=== PATIENT | female | born 1950 | race Two or more races ===

== ENCOUNTER → 2017-01-22 | Outpatient (CLI) | payer OTHER | END | disposition home or self-care (01) | LOC: LAB 15:03 | PROVIDERS: ATTEND Nurse Practitioner | DX: Z02.1 Encounter for pre-employment examination (principal) | CPT/HCPCS: 86735; 86762; 86765; 86787 ==

== ENCOUNTER → 2018-09-25 | Outpatient (CLI) | payer BC ==
[2018-09-25 10:10] LABS: Urine WBC None Seen /hpf (0 - 5)
[2018-09-25 10:37] LABS: Basophils # (auto) 0 uL; Eosinophils # (auto) 0.1 uL; Eosinophils % (auto) 2.1 % (0.0-7.0); Hematocrit 39.1 % (36.0-46.0); Hemoglobin 13.4 g/dL (12.2-16.2); Lymphocytes % (auto) 29.9 % (10.0-50.0); Mean Corpuscular Hemoglobin 30.2 pg (28.0-32.0); Mean Corpuscular Hgb Conc. 34.1 g/dL (32.0-36.0); Mean Corpuscular Volume 88.5 fL (80.0-100.0); Monocytes # (auto) 0.2 uL; Neutrophils # (auto) 2.1 uL; Nucleated Red Blood Cells % 0.2 %; Platelet Count (auto) 218 10^3/uL (140-450); Red Blood Cells 4.42 10^6/uL (4.0-5.20); Red Cell Distribution Width 13.1 % (11.8-14.3); White Blood Cell 3.5 10^3/uL (4.4-10.8)
[2018-09-25 10:54] LABS: Urine Bacteria NONE SEEN /hpf (None Seen); Urine Blood Negative /uL (Negative); Urine Specific Gravity 1.003 (1.001-1.035)
[2018-09-25 11:01] LABS: Potassium 4.3 mmol/L (3.5-5.1)
[2018-09-25 11:12] LABS: Albumin 4.1 g/dL (3.4-5.0); BUN/Creatinine Ratio 8.3; Bilirubin, Total 0.5 mg/dL (0.2-1.0); Calcium 9.2 mg/dL (8.5-10.1); Magnesium 2.7 mg/dL (1.6-2.6); Total Protein 8.3 g/dL (6.4-8.2); Uric Acid 2.8 mg/dL (2.6-6.0)
[2018-09-25 11:54] LABS: T3 Total 1.22 ng/mL (0.60-1.81)
[2018-09-25 11:55] LABS: Folate (Folic Acid) 16.78 ng/mL (5.38-24); Free T3 3.21 pg/mL (2.3-4.2)
[2018-09-25 11:57] LABS: Free T4 (Free Thyroxine) 1.15 ng/dL (0.89-1.76)
== END | disposition home or self-care (01) ==
LOC: LAB 09:38
DX: Z76.89 Persons encountering health services in other specified circumstances (principal)
CPT/HCPCS: 36415; 80053; 80061; 81001; 82306; 82607; 82746; 83036; 83540; 83735; 84439; 84443; 84480; 84481; 84550; 85025; 87086

== ENCOUNTER → 2020-01-17 | Outpatient (CLI) | payer BC ==
[2020-01-17 11:44] LABS: Basophils # (auto) 0 10 ^3/uL (0-0.2); Basophils % (auto) 0.7 % (0.0-2.0); Eosinophils # (auto) 0.1 10 ^3/uL (0-0.8); Hematocrit 38.4 % (36.0-46.0); Hemoglobin 13.1 g/dL (12.2-16.2); Lymphocytes # (auto) 1.5 10 ^3/uL (0.4-5.4); Lymphocytes % (auto) 32.8 % (10.0-50.0); Mean Corpuscular Hemoglobin 29.9 pg (28.0-32.0); Mean Corpuscular Volume 88.1 fL (80.0-100.0); Monocytes # (auto) 0.3 10 ^3/uL (0-1.3); Neutrophils # (auto) 2.7 10 ^3/uL (1.6-8.6); Neutrophils % (auto) 57.5 % (37.0-80.0); Nucleated Red Blood Cells % 0.1 %; Platelet Count (auto) 241 10^3/uL (140-450); Red Blood Cells 4.36 10^6/uL (4.0-5.20); Red Cell Distribution Width 13.1 % (11.8-14.3); Urine Bacteria NONE SEEN /hpf (None Seen); Urine Blood Negative /uL (Negative); Urine Mucus FEW (None Seen); Urine Specific Gravity 1.004 (1.001-1.035); Urine WBC <1 /hpf (0 - 5); White Blood Cell 4.6 10^3/uL (4.4-10.8)
[2020-01-17 13:03] LABS: Potassium 3.7 mmol/L (3.5-5.1)
[2020-01-17 13:13] LABS: Albumin 3.9 g/dL (3.4-5.0); BUN/Creatinine Ratio 9.6; Bilirubin, Total 0.5 mg/dL (0.2-1.0); Uric Acid 3.6 mg/dL (2.6-6.0)
[2020-01-17 15:12] LABS: Free T4 (Free Thyroxine) 1.14 ng/dL (0.89-1.76)
[2020-01-17 15:13] LABS: Free T3 2.77 pg/mL (2.3-4.2); T3 Total 0.99 ng/mL (0.60-1.81)
== END | disposition home or self-care (01) ==
LOC: LAB 11:15
DX: Z13.220 Encounter for screening for lipoid disorders (principal); D51.9 Vitamin B12 deficiency anemia, unspecified; R79.9 Abnormal finding of blood chemistry, unspecified; R82.90 Unspecified abnormal findings in urine
CPT/HCPCS: 36415; 80053; 80061; 81001; 82306; 82607; 83036; 84439; 84443; 84480; 84481; 84550; 85025; 86225; 86235; 87086

== ENCOUNTER 2022-09-10 16:33 | Inpatient (IN) | payer BC ==
[~2022-09-10] VITALS: Ht 157.5 cm; Wt 57.4 kg
[2022-09-10 17:30] LABS: Basophils # (auto) 0.1 10 ^3/uL (0-0.2); Eosinophils # (auto) 0.1 10 ^3/uL (0-0.8); Eosinophils % (auto) 1.4 % (0.0-7.0); White Blood Cell 8.8 10^3/uL (4.4-10.8)
[2022-09-10 17:33] LABS: Basophils % (auto) 0.9 % (0.0-2.0); Hematocrit 20.9 % (36.0-46.0); Lymphocytes # (auto) 1.5 10 ^3/uL (0.4-5.4); Lymphocytes % (auto) 17.3 % (10.0-50.0); Mean Corpuscular Hemoglobin 21.7 pg (28.0-32.0); Mean Corpuscular Hgb Conc. 31.8 g/dL (32.0-36.0); Mean Corpuscular Volume 68.3 fL (80.0-100.0); Monocytes # (auto) 1.1 10 ^3/uL (0-1.3); Monocytes % (auto) 12.3 % (0.0-12.0); Neutrophils % (auto) 68.1 % (37.0-80.0); Red Blood Cells 3.06 10^6/uL (4.0-5.20); Red Cell Distribution Width 17.9 % (11.8-14.3)
[2022-09-10 17:34] LABS: Urine Bacteria NONE SEEN /hpf (None Seen); Urine Blood Negative /uL (Negative); Urine Specific Gravity 1.012 (1.001-1.035); Urine WBC 1 /hpf (0 - 5)
[2022-09-10 17:41] LABS: Hemoglobin 6.6 g/dL (12.2-16.2)
[2022-09-10 17:43] LABS: BUN/Creatinine Ratio 11.8 (10.0-20.0); Calcium 8.9 mg/dL (8.5-10.1); Potassium 4.1 mmol/L (3.5-5.1)
[2022-09-10 17:46] LABS: Bilirubin, Total 0.3 mg/dL (0.2-1.0); Total Protein 9.1 g/dL (6.4-8.2)
[2022-09-10] MEDS ORDERED: PANTOPRAZOLE 40 MG/10 ML VIAL INJ IV ONE (21:30)
[2022-09-10] MEDS ORDERED: FERROUS SULFATE 325mg EC TAB PO ONE (21:45)
[2022-09-10 21:50] LABS: % Iron Saturation 8.7 % (15-50)
[2022-09-10] MEDS ORDERED: AZIT250T9 PO (21:51)
[2022-09-10] MEDS ORDERED: AZEL0.1S NAS (21:51)
[2022-09-10] MEDS ORDERED: METH4PAK3 PO (21:51)
[2022-09-10 21:53] VITALS: BP 120/65
[2022-09-10] MEDS ORDERED: NITROGLYCERIN 0.4 MG SL TAB SL PRN (22:00)
[2022-09-10] MEDS ORDERED: MORPHINE SULFATE INJ 2 MG/ml SYRG IV PRN (22:00)
[2022-09-10 22:06] LABS: Folate (Folic Acid) 15.62 ng/mL (5.38-24)
[2022-09-10 22:11] VITALS: BP 126/63
[2022-09-11] VITALS (8 sets, daily range): BP systolic 113–134; BP diastolic 56–74
[2022-09-11 05:48] LABS: Basophils # (auto) 0 10 ^3/uL (0-0.2); Eosinophils # (auto) 0.2 10 ^3/uL (0-0.8); Eosinophils % (auto) 2.7 % (0.0-7.0); Hematocrit 28.2 % (36.0-46.0); Hemoglobin 9.1 g/dL (12.2-16.2); Mean Corpuscular Hemoglobin 24.2 pg (28.0-32.0); Mean Corpuscular Hgb Conc. 32.3 g/dL (32.0-36.0); Mean Corpuscular Volume 74.9 fL (80.0-100.0); Monocytes # (auto) 0.8 10 ^3/uL (0-1.3)
[2022-09-11 05:50] LABS: Basophils % (auto) 0.6 % (0.0-2.0); Lymphocytes % (auto) 14.8 % (10.0-50.0); Monocytes % (auto) 11.5 % (0.0-12.0); Neutrophils # (auto) 4.8 10 ^3/uL (1.6-8.6); Neutrophils % (auto) 70.4 % (37.0-80.0); Red Blood Cells 3.76 10^6/uL (4.0-5.20); White Blood Cell 6.8 10^3/uL (4.4-10.8)
[2022-09-11 06:04] LABS: Red Cell Distribution Width 20.6 % (11.8-14.3)
[2022-09-11 06:08] LABS: Potassium 3.7 mmol/L (3.5-5.1)
[2022-09-11 06:17] LABS: BUN/Creatinine Ratio 7.9 (10.0-20.0); Bilirubin, Total 1.1 mg/dL (0.2-1.0); Calcium 9.1 mg/dL (8.5-10.1); Total Protein 8.3 g/dL (6.4-8.2)
[2022-09-11] MEDS: PANTOPRAZOLE 40 MG/10 ML VIAL INJ IV SCH (10:02)
[2022-09-11] MEDS ORDERED: SODIUM FERR GLUC 62.5MG/5ML 125 MG in SODIUM CHL 0.9% 100 ML IV SCH (12:00)
[2022-09-11] MEDS: IRON SUCROSE COMPLEX 200 MG in SODIUM CHL 0.9% 100 ML IV SCH (13:46)
[2022-09-11] MEDS ORDERED: ERGOCALCIFEROL 50,000 UNIT(1.25MG) CAP PO SCH (18:15)
[2022-09-12 05:00] VITALS: BP 123/66
[2022-09-12 06:26] LABS: Basophils # (auto) 0 10 ^3/uL (0-0.2); Eosinophils # (auto) 0.3 10 ^3/uL (0-0.8); Eosinophils % (auto) 3.6 % (0.0-7.0); Lymphocytes # (auto) 0.9 10 ^3/uL (0.4-5.4); Mean Corpuscular Volume 74.9 fL (80.0-100.0); Nucleated Red Blood Cells % 0.1 %
[2022-09-12 06:30] LABS: Basophils % (auto) 0.6 % (0.0-2.0); Hematocrit 27.8 % (36.0-46.0); Hemoglobin 9.1 g/dL (12.2-16.2); Lymphocytes % (auto) 12.7 % (10.0-50.0); Mean Corpuscular Hemoglobin 24.5 pg (28.0-32.0); Mean Corpuscular Hgb Conc. 32.8 g/dL (32.0-36.0); Monocytes # (auto) 0.9 10 ^3/uL (0-1.3); Monocytes % (auto) 11.7 % (0.0-12.0); Neutrophils # (auto) 5.3 10 ^3/uL (1.6-8.6); Neutrophils % (auto) 71.4 % (37.0-80.0); Red Blood Cells 3.71 10^6/uL (4.0-5.20); White Blood Cell 7.4 10^3/uL (4.4-10.8)
[2022-09-12 06:39] LABS: Red Cell Distribution Width 20.5 % (11.8-14.3)
[2022-09-12 09:00] VITALS: BP 115/69
[2022-09-12] MEDS: PANTOPRAZOLE 40 MG/10 ML VIAL INJ IV SCH (09:52)
[2022-09-12] MEDS: IRON SUCROSE COMPLEX 200 MG in SODIUM CHL 0.9% 100 ML IV SCH (12:15)
[2022-09-12 13:00] VITALS: BP 113/69
[2022-09-12 16:30] VITALS: BP 123/65
[2022-09-12] MEDS ORDERED: ERGO1CAP23 PO (16:52)
[2022-09-12] MEDS ORDERED: FERR-7 PO (16:52)
== END 2022-09-12 19:02 | disposition home or self-care (01) | DRG 811 ==
LOC: ER 16:33 → TELE 21:50 → TELE-WESTW 09-11 12:59
PROVIDERS: ADMIT Nurse Practitioner Family; ATTEND Internal Medicine
PROC: 30233N1 Transfusion of Nonautologous Red Blood Cells into Peripheral Vein, Percutaneous Approach (ICD-10-PCS; principal; 2022-09-10)
DX: D50.9 Iron deficiency anemia, unspecified (principal); E43 Unspecified severe protein-calorie malnutrition; E87.1 Hypo-osmolality and hyponatremia; R04.0 Epistaxis; I10 Essential (primary) hypertension; E55.9 Vitamin D deficiency, unspecified; Z68.23 Body mass index [BMI] 23.0-23.9, adult; Z79.899 Other long term (current) drug therapy
CPT/HCPCS: 36415; 70486; 71046; 80053; 81001; 82270; 82306; 82607; 82746; 83540; 83550; 83690; 84443; 84484; 85025; 86850; 86900; 86901; 86920; 93005; C9113; G0378; J1756

== ENCOUNTER 2022-09-26 06:36 | Emergency (ER) | payer BC ==
[~2022-09-26] VITALS: Ht 157.5 cm; Wt 50.5 kg
[~2022-09-26 06:36] MED LIST: AZEL0.1S NAS; ERGO1CAP23 PO; FERR-7 PO
[2022-09-26 07:07] LABS: Basophils # (auto) 0.1 10 ^3/uL (0-0.2); Basophils % (auto) 0.9 % (0.0-2.0); Eosinophils # (auto) 0.1 10 ^3/uL (0-0.8); Eosinophils % (auto) 0.9 % (0.0-7.0); Hematocrit 29.3 % (36.0-46.0); Hemoglobin 9.7 g/dL (12.2-16.2); Lymphocytes # (auto) 1.1 10 ^3/uL (0.4-5.4); Lymphocytes % (auto) 14.8 % (10.0-50.0); Mean Corpuscular Hemoglobin 25.1 pg (28.0-32.0); Mean Corpuscular Hgb Conc. 33.2 g/dL (32.0-36.0); Mean Corpuscular Volume 75.8 fL (80.0-100.0); Monocytes # (auto) 0.9 10 ^3/uL (0-1.3); Monocytes % (auto) 11.4 % (0.0-12.0); Neutrophils # (auto) 5.4 10 ^3/uL (1.6-8.6); Nucleated Red Blood Cells % 0.1 %; Red Blood Cells 3.87 10^6/uL (4.0-5.20); White Blood Cell 7.5 10^3/uL (4.4-10.8)
[2022-09-26 07:09] LABS: Red Cell Distribution Width 22.9 % (11.8-14.3)
[2022-09-26 07:27] LABS: Albumin 2.2 g/dL (3.4-5.0); Calcium 9.4 mg/dL (8.5-10.1); Potassium 4.1 mmol/L (3.5-5.1)
[2022-09-26 07:30] LABS: BUN/Creatinine Ratio 7.9 (10.0-20.0); Bilirubin, Total 0.3 mg/dL (0.2-1.0); Total Protein 9.8 g/dL (6.4-8.2)
[2022-09-26 11:25] VITALS: BP 122/61
== END 2022-09-26 11:28 | disposition home or self-care (01) ==
LOC: ER 06:36
DX: D64.9 Anemia, unspecified (principal); Z88.0 Allergy status to penicillin
CPT/HCPCS: 36415; 80053; 85025